=== PATIENT | female | born 1985 | race Caucasian/White ===

== ENCOUNTER 2020-09-16 05:11 | Inpatient (IN) ==
[2020-09-16] MEDS ORDERED: ONDANSETRON 4 MG/2 ML VIAL IV PRN ×2 (05:22→11:51)
[2020-09-16] MEDS ORDERED: BUTORPHANOL 2 MG/ML VIAL IV PRN (05:22)
[2020-09-16] MEDS ORDERED: OXYTOCIN/LR 20 UNIT/1,000 ML BAG IV SCH (05:30)
[2020-09-16] MEDS ORDERED: LACTATED RINGERS 1,000 ML IV SCH (05:30)
[2020-09-16 06:07] LABS: Basophils % 0.1 % (0.0-0.8); Hematocrit 34.1 VOL% (35.7-47.0); Hemoglobin 11.3 GM/DL (12.0-16.0); Immature Granulocytes % 1.2 %; Lymphocytes % 5.9 % (21.3-54.2); Mean Corpuscular HGB Conc 33.1 GM/DL (32-36); Mean Platelet Volume 12.1 FL (9.6-12.0); Monocytes % 2.8 % (1.7-12.7); Platelet Count 165 T/CUMM (130-400); Red Blood Count 3.79 MC/CUMM (3.8-5.5); Red Cell Distribution Width 15.1 % (9.3-17.3); White Blood Count 16.9 T/CUMM (4-12)
[2020-09-16 06:28] LABS: Bilirubin,Direct < 0.100 MG/DL (0.0-0.20); Uric Acid 5.3 MG/DL (2.6-6.0)
[2020-09-16 06:31] LABS: Albumin 2.6 G/DL (3.4-5.0); Bilirubin,Total 0.4 MG/DL (0.2-1.0); Calcium 8.6 MG/DL (8.5-10.1); Osmolality,Calculated 271.8 MOS/KG (273-304); Potassium 3.7 MMOL/L (3.5-5.1); Total Protein 6.6 G/DL (6.4-8.2)
[2020-09-16 06:35] LABS: INR 0.9; PT Patient Result 10.1 SECS (9.8-11.9); Partial Thromboplastin Time 26.9 SECS (23.9-33.8)
[2020-09-16] MEDS ORDERED: LABETALOL 100 MG TABLET PO SCH (10:00)
[2020-09-16] MEDS ORDERED: hydrOXYzine HCL 25 MG/1 ML VIAL IM PRN (10:11)
[2020-09-16] MEDS ORDERED: PROMETHAZINE 25 MG/1 ML VIAL IM ONE (10:11)
[2020-09-16] MEDS ORDERED: ePHEDrine 50 MG/ML VIAL IV PRN (10:11)
[2020-09-16] MEDS ORDERED: LACTATED RINGERS 1,000 ML IV ONE (10:11)
[2020-09-16] MEDS ORDERED: FAMOTIDINE 20 MG/2 ML VIAL IV ONE (10:11)
[2020-09-16] MEDS ORDERED: diphenhydrAMINE 50 MG/1 ML VIAL IV PRN ×2 (10:11)
[2020-09-16] MEDS ORDERED: CITRIC ACID/SODIUM CITRATE 30 ML UDCUP PO ONE (10:11)
[2020-09-16] MEDS ORDERED: NALOXONE 0.4 MG/ML VIAL IV PRN (10:11)
[2020-09-16] MEDS ORDERED: fentaNYL 2 MCG/ROPIV 0.2% EPID 100 ML EPIDURAL SCH (10:30)
[2020-09-16] MEDS ORDERED: METHYLERGONOVINE 0.2 MG/1 ML AMP ONE (11:22)
[2020-09-16] MEDS ORDERED: TRANEXAMIC ACID 1,000 MG/10 ML VIAL ONE (11:22)
[2020-09-16] MEDS ORDERED: miSOPROStoL 200 MCG TABLET ONE (11:22)
[2020-09-16] MEDS ORDERED: RHO(D) IMMUNE GLOBULIN 300 MCG SYRINGE IM ONE (11:51)
[2020-09-16] MEDS ORDERED: BENZOCAINE 20%/MENTHOL 0.5% SPRAY 56 GM CAN TOP PRN (11:51)
[2020-09-16] MEDS ORDERED: HYDROCORTISONE 2.5% RECTAL CREAM 30 GM TUBE TOP PRN (11:51)
[2020-09-16] MEDS ORDERED: MEASLES/MUMPS/RUBELLA VACCINE 0.5 ML VIAL SUBCUT ONE (11:51)
[2020-09-16] MEDS ORDERED: oxyCODONE/ACETAMINOPHEN 5-325 MG TABLET PO PRN ×2 (11:51)
[2020-09-16] MEDS ORDERED: ACETAMINOPHEN 325 MG TABLET PO PRN (11:51)
[2020-09-16] MEDS ORDERED: WITCH HAZEL PADS 100/JAR TOP PRN (11:51)
[2020-09-16] MEDS ORDERED: DIPH/TET/ACEL PERT BOOSTER VACCINE 0.5 ML VIAL IM ONE (11:51)
[2020-09-16] MEDS ORDERED: OXYTOCIN/LR 20 UNIT/1,000 ML BAG IV ONE (11:51)
[2020-09-16] MEDS ORDERED: BISACODYL 10 MG SUPP RECTAL PRN (11:51)
[2020-09-16] MEDS ORDERED: LANOLIN 50% CREAM 0.3 OZ TUBE TOP PRN (11:51)
[2020-09-16 12:03] LABS: Cord Venous Blood HCO3 18.6 MMOL/L; Cord Venous Blood PCO2 56.3 MMHG; Cord Venous Blood PO2 16.8
[2020-09-16] MEDS: LABETALOL 100 MG TABLET PO SCH ×2 (12:20→21:24)
[2020-09-16] MEDS: IBUPROFEN 800 MG TABLET PO PRN (21:30)
[2020-09-16] MEDS: DOCUSATE SODIUM 100 MG CAPSULE PO SCH (21:30)
[2020-09-17 05:56] LABS: Basophils % 0.1 % (0.0-0.8); Eosinophils # 0.1 10*3/uL (0.0-0.87); Eosinophils % 0.7 % (0.00-10.9); Hematocrit 29.1 VOL% (35.7-47.0); Hemoglobin 9.6 GM/DL (12.0-16.0); Immature Granulocytes % 1.6 %; Immature Granulocytes Absolute 0.22 #; Lymphocytes # 1.8 10*3/uL (1.4-4.0); Lymphocytes % 12.9 % (21.3-54.2); Mean Corpuscular Volume 92.1 FL (87-102); Mean Platelet Volume 12.3 FL (9.6-12.0); Monocytes % 4.3 % (1.7-12.7); Neutrophils % 80.4 % (38.7-73.9); Platelet Count 145 T/CUMM (130-400); Red Blood Count 3.16 MC/CUMM (3.8-5.5); Red Cell Distribution Width 15.3 % (9.3-17.3); White Blood Count 14.2 T/CUMM (4-12)
[2020-09-17] MEDS: IBUPROFEN 800 MG TABLET PO PRN ×4 (06:22→23:38)
[2020-09-17] MEDS: DOCUSATE SODIUM 100 MG CAPSULE PO SCH ×2 (11:01→20:21)
[2020-09-17] MEDS: LABETALOL 100 MG TABLET PO SCH ×2 (11:01→20:25)
[2020-09-18 07:32] VITALS: BP 109/63
[2020-09-18] MEDS: DOCUSATE SODIUM 100 MG CAPSULE PO SCH (08:04)
[2020-09-18] MEDS: IBUPROFEN 800 MG TABLET PO PRN (08:04)
[2020-09-18] MEDS: LABETALOL 100 MG TABLET PO SCH (13:55)
== END 2020-09-18 12:35 | disposition home or self-care (01) | DRG 807 ==
LOC: N.LD 05:11 → N.OB 15:17
PROVIDERS: ADMIT Specialist; ATTEND Specialist